=== PATIENT | male | born 1960 | race Caucasian/White ===

== ENCOUNTER 2016-09-29 14:41 | Emergency (ER) | payer BC, MEDICARE ==
[~2016-09-29] VITALS: Ht 180.3 cm; Wt 89.0 kg
[2016-09-29 14:43] VITALS: BP 108/71
[2016-09-29] MEDS ORDERED: IBUPROFEN 200 MG TABLET ONE (15:13)
[2016-09-29] MEDS ORDERED: IBUPROFEN 200 MG TABLET PO ONE (15:30)
== END 2016-09-29 15:49 | disposition home or self-care (01) ==
LOC: ED 15:18
DX: S93.621A Sprain of tarsometatarsal ligament of right foot, initial encounter (principal); I10 Essential (primary) hypertension; X58.XXXA Exposure to other specified factors, initial encounter; Y93.89 Activity, other specified; Y99.8 Other external cause status; Y92.89 Other specified places as the place of occurrence of the external cause
CPT/HCPCS: 99284

== ENCOUNTER 2016-10-29 15:48 | Emergency (ER) | payer MEDICARE ==
[~2016-10-29] VITALS: Ht 177.8 cm; Wt 89.2 kg
[2016-10-29 16:07] VITALS: BP 138/91
[2016-10-29] MEDS ORDERED: DIPH,PERTUSS(ACELL),TET VAC/PF 0.5 ML IM-VACC ONE ×2 (16:23→16:30)
[2016-10-29] MEDS ORDERED: IBUPROFEN 200 MG TABLET ONE (16:23)
[2016-10-29] MEDS ORDERED: IBUPROFEN 200 MG TABLET PO ONE (16:30)
== END 2016-10-29 16:40 | disposition home or self-care (01) ==
LOC: ED 16:30
DX: S71.151A Open bite, right thigh, initial encounter (principal); G89.11 Acute pain due to trauma; I10 Essential (primary) hypertension; W54.0XXA Bitten by dog, initial encounter; Y93.89 Activity, other specified; Y92.488 Other paved roadways as the place of occurrence of the external cause; Y99.8 Other external cause status
CPT/HCPCS: 90471; 90715

== ENCOUNTER 2017-02-28 06:29 | Inpatient (IN) | payer MEDICARE ==
[~2017-02-28] VITALS: Ht 182.9 cm; Wt 88.0 kg
[2017-02-28] MEDS ORDERED: ASPIRIN 81 MG TABLET CHEW PO ONE (07:00)
[2017-02-28] MEDS ORDERED: OXYcodone/APAP 5/325MG TABLET PO ONE (07:00)
[2017-02-28] MEDS ORDERED: ASPIRIN 81 MG TABLET CHEW ONE (07:10)
[2017-02-28] MEDS ORDERED: OXYcodone/APAP 5/325MG TABLET ONE (07:11)
[2017-02-28 07:59] LABS: HEMATOCRIT 39.9 % (39.2-51.8); HEMOGLOBIN 13.5 g/dL (13.7-18.0); WHITE BLOOD COUNT 9.4 x10^3/uL (3.4-10)
[2017-02-28 08:12] LABS: BLOOD UREA NITROGEN 36 mg/dL (7-18)
[2017-02-28] MEDS ORDERED: LISINOPRIL 20 MG TABLET ONE (08:17)
[2017-02-28 08:18] LABS: IS PT STATUS REG ER OR PRE ER? YES
[2017-02-28] MEDS ORDERED: LISINOPRIL 20 MG TABLET PO ONE (08:30)
[2017-02-28] MEDS ORDERED: hydrALAzine 20 MG/ML, 1ML IV ONE (09:00)
[2017-02-28] MEDS ORDERED: CARV12.52 PO (09:09)
[2017-02-28] MEDS ORDERED: HYDR12.53 PO (09:10)
[2017-02-28] MEDS ORDERED: LISI2.5T PO (09:10)
[2017-02-28] MEDS ORDERED: AMLO2.5T PO (09:11)
[2017-02-28] MEDS ORDERED: hydrALAzine 20 MG/ML, 1ML ONE (09:14)
[2017-02-28] MEDS ORDERED: ONDANSETRON 2MG/ML, 2ML IVPush PRN (10:00)
[2017-02-28] MEDS ORDERED: ONDANSETRON ODT 4 MG PO PRN (10:00)
[2017-02-28] MEDS ORDERED: HYDROcodone/APAP 5/325 TABLET PO PRN (10:00)
[2017-02-28 10:19] VITALS: BP 149/100
[2017-02-28] MEDS ORDERED: ASPI-515 PO (10:56)
[2017-02-28 11:41] VITALS: BP 118/75
[2017-02-28] MEDS ORDERED: methylPREDNISolone SOD SUCC 125 MG/2 ML ONE (11:53)
[2017-02-28] MEDS: SODIUM CHLORIDE 0.9% 1,000 ML IV SCH ×3 (11:57→22:11)
[2017-02-28] MEDS: HEPARIN 5,000 UNITS/ML, 1ML SQ SCH ×2 (11:57→19:14)
[2017-02-28] MEDS: methylPREDNISolone SOD SUCC 40 MG/ML IV SCH ×2 (11:57→22:11)
[2017-02-28] MEDS ORDERED: PNEUMOCOCCAL 23 VACCINE IM-VACC ONE (12:30)
[2017-02-28 12:35] LABS: DAU SCREEN DISCLAIMER
[2017-02-28 14:16] LABS: IS PT STATUS REG ER OR PRE ER? NO
[2017-02-28 14:23] VITALS: BP 121/70
[2017-02-28] MEDS: CARVEDILOL 12.5 MG TABLET PO SCH (17:24)
[2017-02-28 17:36] VITALS: BP 133/72
[2017-02-28 19:29] VITALS: BP 126/79
[2017-03-01 02:00] VITALS: BP 138/76
[2017-03-01] MEDS: HEPARIN 5,000 UNITS/ML, 1ML SQ SCH ×3 (03:03→19:53)
[2017-03-01] MEDS: SODIUM CHLORIDE 0.9% 1,000 ML IV SCH ×2 (03:45→12:10)
[2017-03-01] MEDS: CARVEDILOL 12.5 MG TABLET PO SCH ×2 (05:48→18:11)
[2017-03-01] MEDS: ASPIRIN 81 MG TABLET EC PO SCH (05:48)
[2017-03-01 07:15] VITALS: BP 140/87
[2017-03-01 07:18] LABS: HEMATOCRIT 38.3 % (39.2-51.8); WHITE BLOOD COUNT 9.7 x10^3/uL (3.4-10)
[2017-03-01 07:27] LABS: BLOOD UREA NITROGEN 38 mg/dL (7-18)
[2017-03-01] MEDS: methylPREDNISolone SOD SUCC 40 MG/ML IV SCH ×2 (09:40→22:21)
[2017-03-01] MEDS: AMLODIPINE 5 MG TABLET PO SCH (09:40)
[2017-03-01 14:12] VITALS: BP 152/95
[2017-03-01 19:55] VITALS: BP 158/97
[2017-03-01 20:07] VITALS: BP 104/64
[2017-03-02 03:00] VITALS: BP 136/97
[2017-03-02] MEDS: HEPARIN 5,000 UNITS/ML, 1ML SQ SCH ×3 (03:31→20:35)
[2017-03-02 05:15] LABS: HEMATOCRIT 38.3 % (39.2-51.8); HEMOGLOBIN 12.9 g/dL (13.7-18.0); WHITE BLOOD COUNT 13.2 x10^3/uL (3.4-10)
[2017-03-02 05:31] LABS: ASPARTATE AMINO TRANSFERASE 8 U/L (15-37); BLOOD UREA NITROGEN 45 mg/dL (7-18)
[2017-03-02] MEDS: ASPIRIN 81 MG TABLET EC PO SCH (05:43)
[2017-03-02] MEDS: CARVEDILOL 12.5 MG TABLET PO SCH ×2 (05:43→18:06)
[2017-03-02 07:58] VITALS: BP 145/86
[2017-03-02] MEDS: methylPREDNISolone SOD SUCC 40 MG/ML IV SCH ×2 (09:21→22:24)
[2017-03-02] MEDS: AMLODIPINE 5 MG TABLET PO SCH (09:21)
[2017-03-02 16:27] VITALS: BP 152/84
[2017-03-02 19:27] VITALS: BP 151/96
[2017-03-03 01:45] VITALS: BP 141/82
[2017-03-03] MEDS: HEPARIN 5,000 UNITS/ML, 1ML SQ SCH ×3 (03:20→19:52)
[2017-03-03] MEDS: ASPIRIN 81 MG TABLET EC PO SCH (05:17)
[2017-03-03] MEDS: CARVEDILOL 12.5 MG TABLET PO SCH (05:17)
[2017-03-03 05:51] LABS: BLOOD UREA NITROGEN 48 mg/dL (7-18)
[2017-03-03 06:53] VITALS: BP 139/95
[2017-03-03] MEDS: methylPREDNISolone SOD SUCC 40 MG/ML IV SCH (08:43)
[2017-03-03] MEDS: AMLODIPINE 5 MG TABLET PO SCH ×2 (08:44→08:59)
[2017-03-03] MEDS: METOPROLOL TARTRATE 25 MG TABLET PO SCH ×2 (08:59→16:58)
[2017-03-03 14:41] VITALS: BP 156/91
[2017-03-03 18:29] VITALS: BP 168/93
[2017-03-03] MEDS: hydrALAzine 20 MG/ML, 1ML IVPush PRN (19:56)
[2017-03-03 22:00] VITALS: BP 152/86
[2017-03-04 01:57] VITALS: BP 156/106
[2017-03-04] MEDS: hydrALAzine 20 MG/ML, 1ML IVPush PRN (02:01)
[2017-03-04] MEDS: HEPARIN 5,000 UNITS/ML, 1ML SQ SCH ×3 (02:03→19:51)
[2017-03-04 02:50] VITALS: BP 155/85
[2017-03-04] MEDS: ASPIRIN 81 MG TABLET EC PO SCH (05:06)
[2017-03-04] MEDS: METOPROLOL TARTRATE 25 MG TABLET PO SCH ×2 (05:06→17:43)
[2017-03-04 07:00] VITALS: BP 142/82
[2017-03-04 07:08] LABS: BLOOD UREA NITROGEN 50 mg/dL (7-18)
[2017-03-04] MEDS: AMLODIPINE 5 MG TABLET PO SCH (08:22)
[2017-03-04] MEDS: ACETAMINOPHEN 325 MG TABLET PO PRN ×2 (11:28→20:41)
[2017-03-04 12:52] VITALS: BP 130/83
[2017-03-04] MEDS ORDERED: MAGNESIUM SULFATE PMX 2GM/50ML 50 ML IV ONE (16:00)
[2017-03-04 20:00] VITALS: BP 136/84
[2017-03-04] MEDS: SODIUM CHLORIDE 0.45% 1,000 ML IV SCH (22:52)
[2017-03-05 02:00] VITALS: BP 152/93
[2017-03-05] MEDS: HEPARIN 5,000 UNITS/ML, 1ML SQ SCH (02:43)
[2017-03-05 05:11] LABS: HEMATOCRIT 41.3 % (39.2-51.8); HEMOGLOBIN 13.9 g/dL (13.7-18.0); WHITE BLOOD COUNT 7.7 x10^3/uL (3.4-10)
[2017-03-05] MEDS: ASPIRIN 81 MG TABLET EC PO SCH (05:14)
[2017-03-05] MEDS: METOPROLOL TARTRATE 25 MG TABLET PO SCH (05:14)
[2017-03-05 05:20] LABS: BLOOD UREA NITROGEN 57 mg/dL (7-18)
[2017-03-05] MEDS ORDERED: AMLO5TAB2 PO (07:05)
[2017-03-05] MEDS ORDERED: METO25TA35 PO (07:05)
[2017-03-05 07:52] VITALS: BP 143/86
[2017-03-05] MEDS: AMLODIPINE 5 MG TABLET PO SCH (08:37)
[2017-03-05] MEDS: SODIUM CHLORIDE 0.45% 1,000 ML IV SCH (08:38)
[2017-03-05] MEDS ORDERED: PRED20TA PO (09:03)
== END 2017-03-05 11:06 | disposition home or self-care (01) | DRG 304 ==
LOC: ED 07:54 → EDIP 09:00 → 5SO 10:15 → 4WST 16:38 → DCLOUNGE 03-05 10:58
PROVIDERS: ADMIT Internal Medicine; ATTEND Hospitalist
DX: I16.0 Hypertensive urgency (principal); N17.0 Acute kidney failure with tubular necrosis; D69.6 Thrombocytopenia, unspecified; S96.912A Strain of unspecified muscle and tendon at ankle and foot level, left foot, initial encounter; D64.9 Anemia, unspecified; M10.00 Idiopathic gout, unspecified site; Z59.0 Homelessness; Z91.14 Patient's other noncompliance with medication regimen; Z81.1 Family history of alcohol abuse and dependence; Z80.8 Family history of malignant neoplasm of other organs or systems
CPT/HCPCS: 36415; 71020; 80048; 80053; 80307; 81003; 82040; 83735; 84484; 84550; 85025; 90732; 93005; 93975; 99285; J1644; G0479; J0360; J2920; J3475; J7030

== ENCOUNTER 2017-03-08 17:59 | Emergency (ER) | payer MEDICARE ==
[~2017-03-08] VITALS: Ht 177.8 cm; Wt 89.0 kg
[~2017-03-08 17:59] MED LIST: AMLO2.5T PO; AMLO5TAB2 PO; ASPI-515 PO; CARV12.52 PO; HYDR12.53 PO; LISI2.5T PO; METO25TA35 PO; PRED20TA PO
[2017-03-08 18:14] VITALS: BP 181/115
[2017-03-08] MEDS ORDERED: AMLODIPINE 5 MG TABLET PO ONE (18:30)
[2017-03-08] MEDS ORDERED: METOPROLOL TARTRATE 25 MG TABLET PO ONE (18:30)
[2017-03-08] MEDS ORDERED: IBUPROFEN 200 MG TABLET PO ONE (18:30)
[2017-03-08] MEDS ORDERED: IBUPROFEN 200 MG TABLET ONE (18:38)
== END 2017-03-08 18:56 | disposition home or self-care (01) ==
LOC: ED 18:47
DX: M79.671 Pain in right foot (principal); I10 Essential (primary) hypertension; Z72.89 Other problems related to lifestyle
CPT/HCPCS: 99284

== ENCOUNTER 2017-07-21 01:17 | Emergency (ER) | payer MEDICARE ==
[~2017-07-21] VITALS: Ht 177.8 cm; Wt 93.4 kg
[2017-07-21 01:19] VITALS: BP 185/112
[2017-07-21] MEDS ORDERED: IBUPROFEN 800 MG TABLET ONE (02:05)
[2017-07-21] MEDS ORDERED: IBUPROFEN 200 MG TABLET PO ONE (02:30)
== END 2017-07-21 02:58 | disposition home or self-care (01) ==
LOC: ED 02:43
DX: M79.671 Pain in right foot (principal); M79.672 Pain in left foot; F51.01 Primary insomnia; Z76.0 Encounter for issue of repeat prescription; I10 Essential (primary) hypertension; Z59.0 Homelessness
CPT/HCPCS: 99283; Q0177

== ENCOUNTER 2018-01-10 17:44 | Emergency (ER) | payer MEDICARE ==
[~2018-01-10] VITALS: Ht 182.9 cm; Wt 86.0 kg
[~2018-01-10 17:44] MED LIST changes: -AMLO2.5T PO; +AMLO2.5T3 PO; -AMLO5TAB2 PO; +AMLO5TAB7 PO
[2018-01-10] MEDS ORDERED: HYDROcodone/APAP 5/325 TABLET PO ONE (19:00)
[2018-01-10] MEDS ORDERED: ACETAMINOPHEN 500 MG TABLET PO ONE (19:00)
[2018-01-10] MEDS ORDERED: ACETAMINOPHEN 325 MG TABLET ONE (19:05)
[2018-01-10] MEDS ORDERED: OXYcodone/APAP 5/325MG TABLET ONE (19:05)
[2018-01-10] MEDS ORDERED: HYDROcodone/APAP 5/325 TABLET ONE (19:07)
[2018-01-10 20:10] VITALS: BP 158/107
== END 2018-01-10 20:44 | disposition home or self-care (01) ==
LOC: ED 19:51
DX: S90.32XA Contusion of left foot, initial encounter (principal); I12.9 Hypertensive chronic kidney disease with stage 1 through stage 4 chronic kidney disease, or unspecified chronic kidney disease; N18.9 Chronic kidney disease, unspecified; Z76.0 Encounter for issue of repeat prescription; W18.30XA Fall on same level, unspecified, initial encounter; Y93.89 Activity, other specified; Y92.89 Other specified places as the place of occurrence of the external cause; Y99.8 Other external cause status
CPT/HCPCS: 99284

== ENCOUNTER 2018-04-23 07:08 | Emergency (ER) | payer MEDICARE ==
[~2018-04-23] VITALS: Ht 177.8 cm; Wt 90.0 kg
[~2018-04-23 07:08] MED LIST changes: +AMLO-150 PO; -AMLO2.5T3 PO; +AMLO2.5T5 PO; -AMLO5TAB7 PO; +HYDR12.517 PO; -HYDR12.53 PO
[2018-04-23 07:11] VITALS: BP 124/85
--- NOTE | 2018-04-23 07:35 | NUR ---
PT TO ROOM W/ C/O R KNEE PAIN STARTED FRIDAY AFTER PT "STEPPED ON A BIG ROCK". PT RESTING ON GURNEY. YUNG MERAZ AT BEDSIDE. WARM BLANKET PROVIDED.
--- NOTE | 2018-04-23 08:14 | NUR ---
PATIENT DECLINES CRUTCHES, WILL UTILIZE PERSONAL CANE INSTEAD. CONFIRMED WITH PA
== END 2018-04-23 08:48 | disposition home or self-care (01) ==
LOC: ED 08:08
DX: G89.11 Acute pain due to trauma (principal); M25.561 Pain in right knee; I11.9 Hypertensive heart disease without heart failure; Z72.9 Problem related to lifestyle, unspecified
CPT/HCPCS: 99283

== ENCOUNTER 2018-07-07 19:29 | Inpatient (IN) | payer MEDICARE, MEDICAID ==
[~2018-07-07] VITALS: Ht 182.9 cm; Wt 93.0 kg
--- NOTE | 2018-07-07 19:57 | NUR ---
LEFT FOURTH DIGIT SWELLING AND ERYTHEMA THAT HE INJURED WRESTLING. LEFT ANKLE PAIN AFTER TWISTING IT STEPPING ON ROCKS
[2018-07-07 20:39] LABS: BASOPHILS # (AUTO) 0.01 x10^3/uL (0-0.1); BASOPHILS % (AUTO) 0 % (0-1); EOSINOPHILS # (AUTO) 0.06 x10^3/uL (0-0.4); EOSINOPHILS % (AUTO) 1 % (1-7); LYMPHOCYTES # (AUTO) 1.24 x10^3/uL (1-3.4); LYMPHOCYTES % (AUTO) 16 % (22-44); MD NO; MEAN CORPUSCULAR HEMOGLOBIN 29.1 pg (27.5-34.5); MEAN CORPUSCULAR HGB CONC 33.1 g/dL (33.2-36.2); MEAN CORPUSCULAR VOLUME 87.9 fL (81-97); MEAN PLATELET VOLUME 9.9 fL (7.4-10.4); MONOCYTES # (AUTO) 0.81 x10^3/uL (0.2-0.8); MONOCYTES % (AUTO) 11 % (2-9); NEUTROPHILS # (AUTO) 5.48 x10^3/uL (1.8-6.8); NEUTROPHILS % (AUTO) 72 % (42-75); PLATELET COUNT 143 x10^3/uL (130-400); RED BLOOD COUNT 4.81 x10^6/uL (4.38-5.82)
[2018-07-07 20:49] LABS: ALANINE AMINOTRANSFERASE 18 U/L (12-78); ANION GAP 10 mmol/L (5-15); CALCIUM 8.4 mg/dL (8.5-10.1); CHLORIDE 106 mmol/L (98-107)
[2018-07-07] MEDS ORDERED: OXYcodone/APAP 5/325MG TABLET ONE (20:51)
[2018-07-07 20:57] LABS: ALKALINE PHOSPHATASE 134 U/L (45-117); BILIRUBIN,TOTAL 0.4 mg/dL (0.2-1.0); CREATININE 2.38 mg/dL (0.7-1.3); TOTAL PROTEIN 7.4 g/dL (6.4-8.2)
[2018-07-07] MEDS ORDERED: VANCOMYCIN PER PHARMACY IV ONE (21:00)
[2018-07-07] MEDS ORDERED: CEFTRIAXONE PMX 1GM/50ML 50 ML IVPB ONE (21:00)
[2018-07-07] MEDS ORDERED: CEFTRIAXONE PMX 1GM/50ML 50 ML ONE (21:12)
--- NOTE | 2018-07-07 21:21 | NUR ---
Lab in to draw cultures x2, will start abx when complete
[2018-07-07 21:29] LABS: HCT (SEDRATE) 42.3 % (39.2-51.8)
[2018-07-07] MEDS ORDERED: VANCOMYCIN 1,800 MG in SODIUM CHLORIDE 0.9% 250 ML IV ONE (21:30)
[2018-07-07] MEDS ORDERED: OXYcodone/APAP 5/325MG TABLET PO ONE (21:30)
--- NOTE | 2018-07-07 21:34 | NUR ---
Cultures drawn x2, abx infusing
[2018-07-07] MEDS ORDERED: MAALOX/HYOSCYAMINE/LIDOCAINE 45 ML BTL ONE (22:16)
--- NOTE | 2018-07-07 23:00 | NUR ---
Pt resting on gurney watching tv, vanco infusing, pt on cont pulse ox and bp monitoring. Denies any needs/concerns, agrees to poc (admit, ortho in the am)
[2018-07-08] VITALS (7 sets, daily range): BP systolic 144–171; BP diastolic 81–111
--- NOTE | 2018-07-08 00:09 | NUR ---
Report to Paige BARAJAS, pt ready for transport, Denniso infusing to floor
[2018-07-08] MEDS ORDERED: VANCOMYCIN PER PHARMACY MC PRN (00:30)
[2018-07-08] MEDS ORDERED: LIDODERM 5% PATCH TD PRN (00:30)
[2018-07-08] MEDS ORDERED: BISACODYL 10 MG SUPP PR PRN (00:30)
[2018-07-08] MEDS ORDERED: TEMAZEPAM 15 MG CAPSULE PO PRN (00:30)
[2018-07-08] MEDS ORDERED: CEFTRIAXONE PMX 1GM/50ML 50 ML IV ONE (00:30)
[2018-07-08] MEDS: LABETALOL 5MG/ML, 20ML IVPush PRN ×3 (01:50→20:13)
[2018-07-08] MEDS ORDERED: PHARMACOKINETIC CONSULTATION MC ONE (05:30)
[2018-07-08] MEDS ORDERED: PHARMACOKINETIC MONITORING MC PRN (05:30)
[2018-07-08] MEDS ORDERED: FENTANYL PF 100 MCG/2ML ONE (09:17)
[2018-07-08] MEDS ORDERED: MIDAZOLAM 1 MG/ML, 2ML ONE (09:17)
[2018-07-08] MEDS ORDERED: PROPOFOL 10 MG/ML, 20ML ONE (09:18)
[2018-07-08] MEDS ORDERED: CEFAZOLIN 1,000 MG ONE ×2 (09:18)
[2018-07-08] MEDS ORDERED: LIDOCAINE 1%, 20ML ONE (09:50)
[2018-07-08] MEDS ORDERED: MORPHINE SULFATE 4 MG/ML, 1ML IVPush PRN (10:00)
[2018-07-08] MEDS ORDERED: ONDANSETRON ODT 8 MG PO PRN (10:00)
[2018-07-08] MEDS ORDERED: HYDROmorphone 2 MG/ML, 1ML IVPush PRN (10:00)
[2018-07-08] MEDS ORDERED: ONDANSETRON 2MG/ML, 2ML IV PRN (10:00)
[2018-07-08] MEDS ORDERED: PROMETHAZINE 25 MG SUPP PR PRN (10:00)
[2018-07-08] MEDS ORDERED: PROMETHAZINE 12.5 MG SUPP PR PRN (10:00)
[2018-07-08] MEDS ORDERED: MEPERIDINE/PF 25MG/0.5ML IVPush PRN (10:00)
[2018-07-08] MEDS ORDERED: FENTANYL PF 100 MCG/2ML IV PRN (10:00)
[2018-07-08] MEDS ORDERED: LABETALOL 5MG/ML, 20ML IV PRN (10:00)
[2018-07-08] MEDS ORDERED: OXYcodone 5 MG/5 ML ORAL.SOL UDC PO PRN (10:00)
[2018-07-08] MEDS ORDERED: PROMETHAZINE 25 MG/ML, 1ML IV PRN (10:00)
[2018-07-08] MEDS ORDERED: hydrALAzine 20 MG/ML, 1ML IV PRN ×2 (10:00→11:30)
[2018-07-08] MEDS ORDERED: ACETAMINOPHEN 325 MG TABLET PO PRN (10:00)
[2018-07-08] MEDS ORDERED: PROMETHAZINE 25 MG/ML, 1ML IM PRN ×2 (10:00)
[2018-07-08] MEDS ORDERED: AMLODIPINE 5 MG TABLET PO SCH (11:30)
[2018-07-08] MEDS: CEFTRIAXONE PMX 2GM/50ML 50 ML IV SCH (23:51)
[2018-07-09 01:30] VITALS: BP 170/94
[2018-07-09 05:14] LABS: BASOPHILS # (AUTO) 0.03 x10^3/uL (0-0.1); BASOPHILS % (AUTO) 0 % (0-1); EOSINOPHILS # (AUTO) 0.01 x10^3/uL (0-0.4); EOSINOPHILS % (AUTO) 0 % (1-7); LYMPHOCYTES # (AUTO) 1.15 x10^3/uL (1-3.4); LYMPHOCYTES % (AUTO) 12 % (22-44); MD NO; MEAN CORPUSCULAR HEMOGLOBIN 29.2 pg (27.5-34.5); MEAN CORPUSCULAR HGB CONC 33.4 g/dL (33.2-36.2); MEAN CORPUSCULAR VOLUME 87.3 fL (81-97); MONOCYTES # (AUTO) 1.08 x10^3/uL (0.2-0.8); MONOCYTES % (AUTO) 12 % (2-9); NEUTROPHILS # (AUTO) 7.15 x10^3/uL (1.8-6.8); NEUTROPHILS % (AUTO) 76 % (42-75); PLATELET COUNT 126 x10^3/uL (130-400); RED BLOOD COUNT 4.69 x10^6/uL (4.38-5.82); RED CELL DISTRIBUTION WIDTH 13.7 % (9.4-14.8)
[2018-07-09 05:19] LABS: ANION GAP 10 mmol/L (5-15); CALCIUM 8.6 mg/dL (8.5-10.1); CHLORIDE 104 mmol/L (98-107); CREATININE 2.16 mg/dL (0.7-1.3)
[2018-07-09] MEDS: AMLODIPINE 10 MG TAB PO SCH (08:00)
[2018-07-09 08:02] VITALS: BP 163/103
[2018-07-09] MEDS ORDERED: VANCOMYCIN 1,800 MG in SODIUM CHLORIDE 0.9% 250 ML IV SCH (10:00)
[2018-07-09] MEDS ORDERED: COLCHICINE 0.6 MG TABLET PO SCH ×2 (10:30→11:30)
[2018-07-09] MEDS ORDERED: PHARMACY MAY ADJ FOR RENAL FX MC PRN (10:30)
[2018-07-09] MEDS: POLYETHYLENE GLYCOL 17 GM PACKET PO PRN (10:39)
[2018-07-09] MEDS: SENNA/DOCUSATE TABLET PO SCH (10:40)
[2018-07-09 13:53] VITALS: BP 164/114
[2018-07-09] MEDS: ACETAMINOPHEN 325 MG TABLET PO PRN ×2 (14:02→19:57)
[2018-07-09] MEDS: LABETALOL 5 MG/ML SYRINGE IVPush PRN ×2 (14:02→19:58)
[2018-07-09 16:55] LABS: MICROSCOPIC AUTO
[2018-07-09 16:56] LABS: CULTURE INDICATED? NO
[2018-07-09] MEDS ORDERED: ONDANSETRON ODT 4 MG PO PRN (17:00)
[2018-07-09] MEDS ORDERED: ONDANSETRON 2MG/ML, 2ML IVPush PRN (17:00)
[2018-07-09 19:20] VITALS: BP_SYST 169; BP_SYST 171; BP_DIAS 108
[2018-07-09] MEDS: GABAPENTIN 100 MG CAPSULE PO PRN (19:57)
[2018-07-10] MEDS: ACETAMINOPHEN 325 MG TABLET PO PRN (00:30)
[2018-07-10] MEDS: CEFTRIAXONE PMX 2GM/50ML 50 ML IV SCH (00:30)
[2018-07-10 00:50] VITALS: BP 157/95
[2018-07-10 05:05] LABS: BASOPHILS # (AUTO) 0.03 x10^3/uL (0-0.1); BASOPHILS % (AUTO) 0 % (0-1); EOSINOPHILS # (AUTO) 0.02 x10^3/uL (0-0.4); EOSINOPHILS % (AUTO) 0 % (1-7); LYMPHOCYTES # (AUTO) 1.02 x10^3/uL (1-3.4); LYMPHOCYTES % (AUTO) 10 % (22-44); MD NO; MEAN CORPUSCULAR HEMOGLOBIN 29.1 pg (27.5-34.5); MEAN CORPUSCULAR VOLUME 88.2 fL (81-97); MEAN PLATELET VOLUME 9.9 fL (7.4-10.4); MONOCYTES % (AUTO) 12 % (2-9); NEUTROPHILS # (AUTO) 7.98 x10^3/uL (1.8-6.8); NEUTROPHILS % (AUTO) 78 % (42-75); PLATELET COUNT 114 x10^3/uL (130-400); RED BLOOD COUNT 4.35 x10^6/uL (4.38-5.82); RED CELL DISTRIBUTION WIDTH 13.4 % (9.4-14.8)
[2018-07-10 05:14] LABS: ANION GAP 7 mmol/L (5-15); CALCIUM 8.3 mg/dL (8.5-10.1); CHLORIDE 103 mmol/L (98-107); CREATININE 2.18 mg/dL (0.7-1.3)
[2018-07-10] MEDS: SENNA/DOCUSATE TABLET PO SCH (07:59)
[2018-07-10] MEDS: POLYETHYLENE GLYCOL 17 GM PACKET PO PRN (07:59)
[2018-07-10] MEDS: AMLODIPINE 10 MG TAB PO SCH (07:59)
[2018-07-10 08:45] VITALS: BP 162/95
[2018-07-10] MEDS ORDERED: LACTULOSE 20 GM/30 ML UDC PO PRN (11:00)
[2018-07-10 15:40] VITALS: BP 174/110
[2018-07-10] MEDS: LABETALOL 5 MG/ML SYRINGE IVPush PRN (16:04)
[2018-07-10] MEDS ORDERED: methylPREDNISolone SOD SUCC 125 MG/2 ML IVPush SCH (16:30)
[2018-07-10] MEDS: METOPROLOL TARTRATE 25 MG TABLET PO SCH (17:11)
[2018-07-10 17:34] LABS: THYROID STIMULATING HORMONE 1.08 mIU/L (0.358-3.740)
[2018-07-10 19:13] VITALS: BP_SYST 163; BP_SYST 165; BP_DIAS 112; BP_DIAS 97
[2018-07-11] MEDS: GABAPENTIN 100 MG CAPSULE PO PRN (00:12)
[2018-07-11] MEDS: ACETAMINOPHEN 325 MG TABLET PO PRN (00:13)
[2018-07-11 01:38] VITALS: BP 157/99
[2018-07-11 05:35] LABS: BASOPHILS # (AUTO) 0.02 x10^3/uL (0-0.1); BASOPHILS % (AUTO) 0 % (0-1); EOSINOPHILS # (AUTO) 0.05 x10^3/uL (0-0.4); EOSINOPHILS % (AUTO) 1 % (1-7); LYMPHOCYTES # (AUTO) 1.37 x10^3/uL (1-3.4); LYMPHOCYTES % (AUTO) 14 % (22-44); MD NO; MEAN CORPUSCULAR HEMOGLOBIN 28.7 pg (27.5-34.5); MEAN CORPUSCULAR HGB CONC 32.6 g/dL (33.2-36.2); MEAN PLATELET VOLUME 10.2 fL (7.4-10.4); MONOCYTES # (AUTO) 1.24 x10^3/uL (0.2-0.8); MONOCYTES % (AUTO) 13 % (2-9); NEUTROPHILS # (AUTO) 6.92 x10^3/uL (1.8-6.8); NEUTROPHILS % (AUTO) 72 % (42-75); PLATELET COUNT 126 x10^3/uL (130-400); RED BLOOD COUNT 4.43 x10^6/uL (4.38-5.82); RED CELL DISTRIBUTION WIDTH 13.3 % (9.4-14.8)
[2018-07-11 05:50] LABS: CHLORIDE 102 mmol/L (98-107)
[2018-07-11 06:09] LABS: ANION GAP 8 mmol/L (5-15); CALCIUM 8.4 mg/dL (8.5-10.1); CREATININE 2.11 mg/dL (0.7-1.3)
[2018-07-11] MEDS: METOPROLOL TARTRATE 25 MG TABLET PO SCH ×2 (06:32→17:18)
[2018-07-11 08:26] VITALS: BP 151/97
[2018-07-11] MEDS: SENNA/DOCUSATE TABLET PO SCH (08:57)
[2018-07-11] MEDS: COLCHICINE 0.6 MG TABLET PO SCH (08:57)
[2018-07-11] MEDS: AMLODIPINE 10 MG TAB PO SCH (08:57)
[2018-07-11 12:58] VITALS: BP 153/99
[2018-07-11 20:13] VITALS: BP 137/93
[2018-07-11] MEDS: POLYETHYLENE GLYCOL 17 GM PACKET PO PRN (20:32)
[2018-07-12 01:42] VITALS: BP 158/94
[2018-07-12] MEDS: METOPROLOL TARTRATE 25 MG TABLET PO SCH ×2 (04:58→18:30)
[2018-07-12 05:13] LABS: ANION GAP 6 mmol/L (5-15); CALCIUM 8.6 mg/dL (8.5-10.1); CHLORIDE 101 mmol/L (98-107); CREATININE 2.06 mg/dL (0.7-1.3)
[2018-07-12 07:01] VITALS: BP 154/109
[2018-07-12] MEDS: AMLODIPINE 10 MG TAB PO SCH (08:44)
[2018-07-12] MEDS: SENNA/DOCUSATE TABLET PO SCH (08:44)
[2018-07-12] MEDS: COLCHICINE 0.6 MG TABLET PO SCH (08:45)
[2018-07-12 12:39] VITALS: BP 145/86
[2018-07-12 19:12] VITALS: BP 150/105
[2018-07-12 19:23] VITALS: BP 148/86
[2018-07-12] MEDS: POLYETHYLENE GLYCOL 17 GM PACKET PO PRN (21:54)
[2018-07-13 00:40] VITALS: BP 156/99
[2018-07-13] MEDS: ACETAMINOPHEN 325 MG TABLET PO PRN (00:50)
[2018-07-13 00:58] VITALS: BP 150/93
[2018-07-13] MEDS: METOPROLOL TARTRATE 25 MG TABLET PO SCH (05:07)
[2018-07-13 05:08] LABS: ANION GAP 9 mmol/L (5-15); CALCIUM 8.5 mg/dL (8.5-10.1); CHLORIDE 101 mmol/L (98-107); CREATININE 1.97 mg/dL (0.7-1.3)
[2018-07-13 06:58] VITALS: BP 160/96
[2018-07-13] MEDS: COLCHICINE 0.6 MG TABLET PO SCH (07:50)
[2018-07-13] MEDS: SENNA/DOCUSATE TABLET PO SCH (07:50)
[2018-07-13] MEDS: AMLODIPINE 10 MG TAB PO SCH (07:50)
[2018-07-13] MEDS ORDERED: ALLO100T30 PO (11:10)
[2018-07-13] MEDS ORDERED: TRAM50TA2 PO (11:10)
[2018-07-13] MEDS ORDERED: GABA-826 PO (11:10)
[2018-07-13] MEDS ORDERED: METO25TA35 PO (11:10)
[2018-07-13] MEDS ORDERED: SENN-177 PO (11:10)
[2018-07-13] MEDS ORDERED: POLY17PO5 PO (11:10)
[2018-07-13] MEDS ORDERED: PRED5TAB PO (11:10)
[2018-07-13] MEDS ORDERED: ALLOPURINOL 100 MG TABLET PO SCH (11:30)
[2018-07-13 13:02] VITALS: BP 151/91
== END 2018-07-13 15:35 | DRG 981 ==
LOC: ED 20:36 → 4NOR 23:23
PROVIDERS: ADMIT Internal Medicine; ATTEND Internal Medicine
PROC: 0RCX0ZZ Extirpation of Matter from Left Finger Phalangeal Joint, Open Approach (ICD-10-PCS; principal; 2018-07-08 09:30)
DX: L03.012 Cellulitis of left finger (principal); N17.0 Acute kidney failure with tubular necrosis; L02.512 Cutaneous abscess of left hand; M1A.9XX1 Chronic gout, unspecified, with tophus (tophi); I12.9 Hypertensive chronic kidney disease with stage 1 through stage 4 chronic kidney disease, or unspecified chronic kidney disease; D64.9 Anemia, unspecified; G89.29 Other chronic pain; K59.00 Constipation, unspecified; N18.3 Chronic kidney disease, stage 3 (moderate); X58.XXXA Exposure to other specified factors, initial encounter; Y93.72 Activity, wrestling; Y93.83 Activity, rough housing and horseplay; Z80.8 Family history of malignant neoplasm of other organs or systems; Z81.1 Family history of alcohol abuse and dependence; Z91.14 Patient's other noncompliance with medication regimen; F12.90 Cannabis use, unspecified, uncomplicated; G47.00 Insomnia, unspecified
CPT/HCPCS: 36415; 71045; 80048; 80053; 81001; 83735; 84443; 85025; 85048; 85651; 86140; 87040; 87070; 87075; 87205; 96365; 96367; 96375; G0378; J0690; J0696; J2250; J2704; J3010; J3370; J7050; J7512